=== PATIENT | male | born 1985 | race Caucasian/White ===

== ENCOUNTER 2019-08-10 10:17 | Emergency (ER) | payer MEDICAID ==
[~2019-08-10] VITALS: Ht 177.8 cm; Wt 80.0 kg
[2019-08-10 10:22] VITALS: BP 178/80
[2019-08-10] MEDS ORDERED: DIPH,PERTUSS(ACELL),TET VAC/PF 0.5 ML IM-VACC ONE ×2 (11:06→11:30)
[2019-08-10] MEDS ORDERED: ACETAMINOPHEN 325 MG TABLET ONE (11:06)
--- NOTE | 2019-08-10 11:16 | NUR ---
PT MEDICATED PER ORDERS. D/C INSTRUCTIONS, MEDS & F/U APPT RV'WD WITH PT, HE VERBALIZES UNDERSTANDING. AMBULATED OUT OF ED WITHOUT DIFFICULTY.
[2019-08-10] MEDS ORDERED: ACETAMINOPHEN 325 MG TABLET PO ONE (11:30)
== END 2019-08-10 11:19 | disposition home or self-care (01) ==
LOC: ED 11:13
DX: S01.511A Laceration without foreign body of lip, initial encounter (principal); W01.0XXA Fall on same level from slipping, tripping and stumbling without subsequent striking against object, initial encounter; Y93.89 Activity, other specified; Y92.89 Other specified places as the place of occurrence of the external cause; Y99.8 Other external cause status
CPT/HCPCS: 90471; 90715; 99283

== ENCOUNTER 2019-08-24 11:26 | Emergency (ER) | payer MEDICAID ==
[~2019-08-24] VITALS: Ht 177.8 cm; Wt 73.6 kg
[2019-08-24 11:27] VITALS: BP 123/80
[2019-08-24] MEDS ORDERED: ACETAMINOPHEN 325 MG TABLET PO ONE (12:30)
[2019-08-24] MEDS ORDERED: ACETAMINOPHEN 325 MG TABLET ONE (12:32)
[2019-08-24] MEDS ORDERED: NEOSPORIN OINT. PKT 1 PACKET ONE (14:24)
== END 2019-08-24 14:29 | disposition home or self-care (01) ==
LOC: ED 12:00
DX: S02.40FA Zygomatic fracture, left side, initial encounter for closed fracture (principal); S02.2XXA Fracture of nasal bones, initial encounter for closed fracture; S50.11XA Contusion of right forearm, initial encounter; F17.200 Nicotine dependence, unspecified, uncomplicated; Y08.89XA Assault by other specified means, initial encounter; Y93.89 Activity, other specified; Y92.89 Other specified places as the place of occurrence of the external cause; Y99.8 Other external cause status
CPT/HCPCS: 70450; 70486; 72125; 99285

== ENCOUNTER 2019-11-12 03:04 | Emergency (ER) | payer OTHER, MEDICAID ==
[~2019-11-12] VITALS: Ht 177.8 cm; Wt 84.0 kg
[2019-11-12 03:16] VITALS: BP 157/79
== END 2019-11-12 04:26 | disposition home or self-care (01) ==
LOC: ED 04:16
DX: Z00.00 Encounter for general adult medical examination without abnormal findings (principal); Z77.21 Contact with and (suspected) exposure to potentially hazardous body fluids
CPT/HCPCS: 36415; 86705; 86706; 86803; 87340; 87806; 99283; G0475